=== PATIENT | male | born 1950 | race Caucasian/White ===

== ENCOUNTER 2016-11-22 01:31 | Emergency (ER) | payer BC ==
[2016-11-22] MEDS ORDERED: KETOROLAC 30 MG/ML VIAL (J1885) As Ordered ONE (01:50)
--- NOTE | 2016-11-22 02:40 | REPUSA ---
History: Left-sided pain. Comparison: Not provided. Technique: Spiral CT scan of the abdomen and pelvis was performed. No intravenous or enteric contrast was administered. Axial images were displayed, as were sagittal and coronal reconstructions. Exam DL P: Findings: The visualized lung bases are unremarkable. 1.3 cm well-defined hypodense lesion of the right hepatic lobe. Benign and chronic. Normal unenhanced liver. Normal gallbladder and extrahepatic biliary system. Normal unenhanced spleen . Normal pancreas. Normal bilateral adrenal glands. Normal size of the right kidney. There is no right renal mass. There are no right renal calculi. Ther e is no right hydronephrosis. Normal visualized right ureter. Normal size of the left kidney. There is no left renal mass. There are no left renal calculi. There i s no left hydronephrosis. Normal visualized left ureter. Normal visualized stomach. Normal small intestine. Fecal stasis in the colon. The appendix is visuali zed and appears normal. There is no demonstrated peritoneal fluid. Normal abdominal aorta. Normal inferior vena cava. Normal retroperitoneum. Mildly thickened urinary bladder. There is no pelvic mass lesion or lymphadenopathy. There is no pelv ic fluid. Normal abdominal wall. Normal osseous structures. Impression: Fecal stasis in the colon.
--- NOTE | 2016-11-22 02:56 | EDDOCDS ---
Nurse's Notes [facility] Name: Redd Briones Age: 66 yrs Sex: Male : 1950 Arrival Date: 11/22/2016 Time: 01:31 Bed I5 / M5 Private MD: Diagnosis: Low back pain-mechanical Presentation: 11/22 01:34 Presenting complaint: Patient states: per pt mid back pain since Saturday night, pt tm5 unsure of injury to his back, awakened tonight due to back pain, denies any other complaints. Acute neurological deficits are not present. Mechanism of Injury: No Mechanism of Injury. Adult Sepsis Screening: The patient does not have new or worsening altered mentation. Patient's respiratory rate is less than 22. Systolic blood pressure is greater than 100. Patient has a qSOFA score of 0- Negative Sepsis Screen. Suicide/Homicide risk assessment- the patient denies having any suicidal and/or homicidal ideations and does not present with any other emotional, behavioral or mental health complaints. 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 Transition of care: patient was not received from another setting of care. 01:34 Acuity: EARL Level 4 tm5 01:34 Method Of Arrival: Walkin/Carried/Asstd tm5 Triage Assessment: 01:38 General: Appears in no apparent distress, Behavior is appropriate for age, cooperative. tm5 Pain: Location: back Pain currently is 10 out of 10 on a pain scale. Quality of pain is described as sharp. Pt Declines HIV testing. Neurological: Level of Consciousness is awake, alert, Oriented to person, place, time. Respiratory: Airway is patent Respiratory effort is even, unlabored, Respiratory pattern is regular, symmetrical. Derm: Skin is pink, warm & dry. Musculoskeletal: Reports pain in back. Historical: - Allergies: Compazine; - Home Meds: 1. Metoprolol Tartrate Unknown Oral once daily 2. Digoxin Unknown Oral - PMHx: Atrial Fib; Hypertension; - PSHx: none; Cardiac stents; - Social history: Smoking status: Patient states was never smoker of tobacco. No barriers to communication noted, The patient speaks fluent Kiswahili. - Family history: Not pertinent. - : The pt / caregiver states he / she is not on anticoagulants. Home medication list is obtained from the patient. - Exposure Risk Screening:: None identified. Screenin:39 Screening information is obtained from the patient. Fall risk: No risks identified. tm5 Assistance ADL's: requires no assistance with activities of daily living. Abuse/DV Screen: The patient / caregiver reports he/she is: not in a situation that causes fear, pain or injury. Nutritional screening: No deficits noted. Advance Directives: Currently, there is no health care proxy. There is no active DNR order. home support is adequate. Assessment: 02:15 General: Appears in no apparent distress, Behavior is appropriate for age, cooperative. js15 Pain: Location: back. Neurological: Level of Consciousness is awake, alert, obeys commands, Oriented to person, place, time. Respiratory: Airway is patent Respiratory effort is even, unlabored, Respiratory pattern is regular, symmetrical. Derm: Skin is pink, warm & dry. 02:54 Reassessment: Patient appears in no apparent distress at this time. Patient denies pain js15 at this time. Patient states feeling better. Patient states symptoms have improved. Pt resting on stretcher, respirations even and unlabored; skin pink, warm, dry. Vital Signs: 01:38 BP 164 / 77; Pulse 80; Resp 18; Temp 98.3(O); Pulse Ox 98% on R/A; Weight 83.91 kg; tm5 Height 5 ft. 7 in. (170.18 cm); Pain 10/10; 02:35 BP 130 / 94; Pulse 67; Resp 18; Temp 97.5(TE); Pulse Ox 97% on R/A; Pain 4/10; js15 02:36 Pain 4/10; js15 01:38 Body Mass Index 28.97 (83.91 kg, 170.18 cm) 5 Vitals: 01:38 Log In Time: November 22, 2016 at 01:39. 5 ED Course: 01:32 Patient visited by Ernestina Velazquez. jp5 01:32 Patient moved to Waiting jp5 01:36 Triage Initiated tm5 01:37 Samson Luis PA-C is PHCP. cc10 01:37 Darlene Lacy MD is Attending Physician. cc10 01:38 Family accompanied patient. tm5 01:40 Patient visited by Samson Luis PA-C. cc10 01:40 Patient visited by Samson Luis PA-C. cc10 01:40 Patient moved to I5 / tm5 01:56 UA Sent. nn1 02:15 The patient / caregiver is instructed regarding the plan of care and ED course. js15 02:36 Patient visited by Jolly Ceja RN. js15 02:53 CT ABD & PELVIS: No Contrast Returned. EDMS 02:54 No IV's were initiated during this patient's visit. No procedures done that require js15 assistance. Administered Medications: 01:56 Drug: ketorolac 30 mg [ketorolac 30 mg/mL (1 mL) injection solution (1 mL)] Route: IM; nn1 Site: left deltoid; 02:35 Follow up: BP 130 / 94; Pulse 67 bpm; Resp 18 bpm; Temp 97.5 Temporal; Pulse Ox 97% RA; js15 Pain 4/10 Adult; Response: Pain is decreased 01:56 Drug: Diazepam 5 mg [diazepam 5 mg/mL injection syringe (1 mL)] Route: IM; Site: right nn1 deltoid; 02:36 Follow up: Pain 4/10 Adult; Response: Pain is decreased js15 Order Results: Lab Order: UA; SPEC'M 11/22/16 01:56 Test: APPEARANCE, URINE; Value: CLEAR; Range: CLEAR; Status: F Test: COLOR, URINE; Value: YELLOW; Range: YELLOW; Status: F Test: PH,URINE; Value: 5.0; Range: 5.0-9.0; Units: UNITS; Status: F Test: SPECIFIC GRAVITY URINE AUTO; Value: 1.023; Range: 1.002-1.035; Status: F Test: PROTEIN, URINE AUTO; Value: NEGATIVE; Range: NEGATIVE; Units: mg/dL; Status: F Test: GLUCOSE, URINE (UA) AUTO; Value: NEGATIVE; Range: NEGATIVE; Units: mg/dL; Status: F Test: KETONE, URINE AUTO; Value: NEGATIVE; Range: NEGATIVE; Units: mg/dL; Status: F Test: UROBILINOGEN, URINE AUTO; Value: 0.2; Range: 0.0-2.0; Units: mg/dL; Status: F Test: BILIRUBIN, URINE AUTO; Value: NEGATIVE; Range: NEGATIVE; Status: F Test: NITRITE, URINE AUTO; Value: NEGATIVE; Range: NEGATIVE; Status: F Test: LEUKOCYTE ESTERASE, URINE AUTO; Value: NEGATIVE; Range: NEGATIVE; Status: F Test: BLOOD, URINE BLOOD; Value: NEGATIVE; Range: NEGATIVE; Status: F Test: WBC, URINE AUTO; Value: 0; Range: 0-3; Units: /HPF; Status: F Test: RBC, URINE AUTO; Value: 0; Range: 0-3; Units: /HPF; Status: F Test: BACTERIA, URINE AUTO; Value: NEGATIVE; Range: NEGATIVE; Status: F Test: SQUAMOUS EPITHELIAL CELL UR AU; Value: 0; Range: 0-6; Units: /HPF; Status: F Test: MUCUS, URINE; Value: SMALL; Range: NEGATIVE; Status: F Test: HYALINE CAST, URINE AUTO; Value: 1; Range: 0-1; Units: /LPF; Status: F Radiology Order: CT ABD & PELVIS: No Contrast Test: CT ABD & PELVIS: No Contrast REASON FOR EXAMINATION: Renal colic; ; History: Left-sided pain.; Comparison: Not provided.; Technique: Spiral CT scan of the abdomen and pelvis was performed. No intravenous or enteric contrast; was administered. Axial images were displayed, as were sagittal and coronal reconstructions. Exam DL; P:; Findings:; The visualized lung bases are unremarkable.; 1.3 cm well-defined hypodense lesion of the right hepatic lobe. Benign and chronic.; Normal unenhanced liver. Normal gallbladder and extrahepatic biliary system. Normal unenhanced spleen; . Normal pancreas.; Normal bilateral adrenal glands.; Normal size of the right kidney. There is no right renal mass. There are no right renal calculi. Ther; e is no right hydronephrosis. Normal visualized right ureter.; Normal size of the left kidney. There is no left renal mass. There are no left renal calculi. There i; s no left hydronephrosis. Normal visualized left ureter.; Normal visualized stomach. Normal small intestine. Fecal stasis in the colon. The appendix is visuali; zed and appears normal.; There is no demonstrated peritoneal fluid.; Normal abdominal aorta. Normal inferior vena cava. Normal retroperitoneum.; Mildly thickened urinary bladder. There is no pelvic mass lesion or lymphadenopathy. There is no pelv; ic fluid.; Normal abdominal wall. Normal osseous structures.; Impression:; Fecal stasis in the colon.; ; Outcome: 02:47 Discharge ordered by Provider. cc10 02:54 Discharge Assessment: Patient awake, alert and oriented x 3. No cognitive and/or js15 functional deficits noted. Patient verbalized understanding of disposition instructions. patient administered narcotics - no. The following High Risk Discharge criteria are identified: None. Discharged to home ambulatory, with family. Condition: improved. Discharge instructions given to patient, Instructed on discharge instructions, follow up and referral plans. medication usage, no driving heavy equipment, Demonstrated understanding of instructions, medications, Pt was receptive of discharge instructions/ teaching. Prescriptions given X 2. CT Study completed. Property sent home with patient. 02:55 Patient left the ED. js15 Signatures: Dispatcher [employer] EDMS Samson Luis, AMANDEEP PARadha cc10 Jolly Ceja,RN RN js15 Dennys ArmendarizRN RN nn1 Ernestina Velazquez 5 Leila Marie,RN RN tm5 HENRIQUE
--- NOTE | 2016-11-22 02:56 | EDDOCDS ---
Physician Documentation [facility] Name: Redd Briones Age: 66 yrs Sex: Male : 1950 Arrival Date: 11/22/2016 Time: 01:31 Bed I5 / M5 Private MD: Disposition: 11/22/16 02:47 Discharged to Home/Self Care. Impression: Low back pain - mechanical. - Condition is Stable. - Discharge Instructions: Back Pain, Adult. - Prescriptions for Ultram 50 mg Oral Tablet - take 1 tablet by ORAL route every 6 hours As needed MDD: 4 tabs; 12 tablet. Robaxin- 750 750 mg Oral Tablet - take 1 tablet by ORAL route every 6 hours As needed; 40 tablet. - Medication Reconciliation form. - Follow up: Private Physician; When: Call to arrange an appointment; Reason: Wound/Symptom Recheck, Recheck today's complaints, Worsening of conditions, Continuance of care. - Problem is an ongoing problem. - Symptoms have improved. Historical: - Allergies: Compazine; - Home Meds: 1. Metoprolol Tartrate Unknown Oral once daily 2. Digoxin Unknown Oral - PMHx: Atrial Fib; Hypertension; - PSHx: none; Cardiac stents; - Social history: Smoking status: Patient states was never smoker of tobacco. No barriers to communication noted, The patient speaks fluent Marshallese. - Family history: Not pertinent. - : The pt / caregiver states he / she is not on anticoagulants. Home medication list is obtained from the patient. - Exposure Risk Screening:: None identified. Vital Signs: 11/22 01:38 BP 164 / 77; Pulse 80; Resp 18; Temp 98.3(O); Pulse Ox 98% on R/A; Weight 83.91 kg / tm5 184.99 lbs; Height 5 ft. 7 in. (170.18 cm); Pain 10/10; 02:35 BP 130 / 94; Pulse 67; Resp 18; Temp 97.5(TE); Pulse Ox 97% on R/A; Pain 4/10; js15 02:36 Pain 4/10; js15 01:38 Body Mass Index 28.97 (83.91 kg, 170.18 cm) tm5 MDM: 01:44 ketorolac 30 mg IM once ordered. cc10 01:44 Diazepam 5 mg IM once ordered. cc10 01:45 UA Ordered. EDMS 01:45 CT ABD & PELVIS: No Contrast Ordered. EDMS 02:14 UA Reviewed. cc10 02:47 Financial registration complete. hs2 Administered Medications: 01:56 Drug: ketorolac 30 mg [ketorolac 30 mg/mL (1 mL) injection solution (1 mL)] Route: IM; nn1 Site: left deltoid; 02:35 Follow up: BP 130 / 94; Pulse 67 bpm; Resp 18 bpm; Temp 97.5 Temporal; Pulse Ox 97% RA; js15 Pain 4/10 Adult; Response: Pain is decreased 01:56 Drug: Diazepam 5 mg [diazepam 5 mg/mL injection syringe (1 mL)] Route: IM; Site: right nn1 deltoid; 02:36 Follow up: Pain 4/10 Adult; Response: Pain is decreased js15 Signatures: Dispatcher [employer] EDMS Samson Luis PA-C PA-C cc10 Jolly Ceja RN RN js15 Cici Salgado, Reg Reg hs2 Leila MarieRN RN tm5 Dennys Armendariz RN nn1 MTDD
--- NOTE | 2016-11-24 03:56 | EDDOCDS ---
Nurse's Notes [facility] Name: Redd Briones Age: 66 yrs Sex: Male : 1950 Arrival Date: 11/22/2016 Time: 01:31 Bed I5 / M5 Private MD: Diagnosis: Low back pain-mechanical Presentation: 11/22 01:34 Presenting complaint: Patient states: per pt mid back pain since Saturday night, pt tm5 unsure of injury to his back, awakened tonight due to back pain, denies any other complaints. Acute neurological deficits are not present. Mechanism of Injury: No Mechanism of Injury. Adult Sepsis Screening: The patient does not have new or worsening altered mentation. Patient's respiratory rate is less than 22. Systolic blood pressure is greater than 100. Patient has a qSOFA score of 0- Negative Sepsis Screen. Suicide/Homicide risk assessment- the patient denies having any suicidal and/or homicidal ideations and does not present with any other emotional, behavioral or mental health complaints. Status: Patient is not a auto service writer or dependent. Transition of care: patient was not received from another setting of care. 01:34 Acuity: EARL Level 4 tm5 01:34 Method Of Arrival: Walkin/Carried/Asstd tm5 Triage Assessment: 01:38 General: Appears in no apparent distress, Behavior is appropriate for age, cooperative. tm5 Pain: Location: back Pain currently is 10 out of 10 on a pain scale. Quality of pain is described as sharp. Pt Declines HIV testing. Neurological: Level of Consciousness is awake, alert, Oriented to person, place, time. Respiratory: Airway is patent Respiratory effort is even, unlabored, Respiratory pattern is regular, symmetrical. Derm: Skin is pink, warm & dry. Musculoskeletal: Reports pain in back. Historical: - Allergies: Compazine; - Home Meds: 1. Metoprolol Tartrate Unknown Oral once daily 2. Digoxin Unknown Oral - PMHx: Atrial Fib; Hypertension; - PSHx: none; Cardiac stents; - Social history: Smoking status: Patient states was never smoker of tobacco. No barriers to communication noted, The patient speaks fluent Romansh. - Family history: Not pertinent. - : The pt / caregiver states he / she is not on anticoagulants. Home medication list is obtained from the patient. - Exposure Risk Screening:: None identified. Screenin:39 Screening information is obtained from the patient. Fall risk: No risks identified. tm5 Assistance ADL's: requires no assistance with activities of daily living. Abuse/DV Screen: The patient / caregiver reports he/she is: not in a situation that causes fear, pain or injury. Nutritional screening: No deficits noted. Advance Directives: Currently, there is no health care proxy. There is no active DNR order. home support is adequate. Assessment: 02:15 General: Appears in no apparent distress, Behavior is appropriate for age, cooperative. js15 Pain: Location: back. Neurological: Level of Consciousness is awake, alert, obeys commands, Oriented to person, place, time. Respiratory: Airway is patent Respiratory effort is even, unlabored, Respiratory pattern is regular, symmetrical. Derm: Skin is pink, warm & dry. 02:54 Reassessment: Patient appears in no apparent distress at this time. Patient denies pain js15 at this time. Patient states feeling better. Patient states symptoms have improved. Pt resting on stretcher, respirations even and unlabored; skin pink, warm, dry. Vital Signs: 01:38 BP 164 / 77; Pulse 80; Resp 18; Temp 98.3(O); Pulse Ox 98% on R/A; Weight 83.91 kg; tm5 Height 5 ft. 7 in. (170.18 cm); Pain 10/10; 02:35 BP 130 / 94; Pulse 67; Resp 18; Temp 97.5(TE); Pulse Ox 97% on R/A; Pain 4/10; js15 02:36 Pain 4/10; js15 01:38 Body Mass Index 28.97 (83.91 kg, 170.18 cm) 5 Vitals: 01:38 Log In Time: November 22, 2016 at 01:39. 5 ED Course: 01:32 Patient visited by Ernestina Velazquez. jp5 01:32 Patient moved to Waiting jp5 01:36 Triage Initiated tm5 01:37 Samson Luis PA-C is PHCP. cc10 01:37 Darlene Lacy MD is Attending Physician. cc10 01:38 Family accompanied patient. tm5 01:40 Patient visited by Samson Luis PA-C. cc10 01:40 Patient visited by Samson Luis PA-C. cc10 01:40 Patient moved to I5 / tm5 01:56 UA Sent. nn1 02:15 The patient / caregiver is instructed regarding the plan of care and ED course. js15 02:36 Patient visited by Jolly Ceja RN. js15 02:53 CT ABD & PELVIS: No Contrast Returned. EDMS 02:54 No IV's were initiated during this patient's visit. No procedures done that require js15 assistance. 02:57 Patient name changed from Redd\S\Arturo\S\Sheitz\S\ to Redd\S\Naveen\S\Sheitz. EDMS 02:58 DE-EM Payment Agreement was scanned into [employer] and attached to record. hs2 21:53 T-Sheet-- Draft Copy was scanned into [employer] and attached to record. klr Administered Medications: 01:56 Drug: ketorolac 30 mg [ketorolac 30 mg/mL (1 mL) injection solution (1 mL)] Route: IM; nn1 Site: left deltoid; 02:35 Follow up: BP 130 / 94; Pulse 67 bpm; Resp 18 bpm; Temp 97.5 Temporal; Pulse Ox 97% RA; js15 Pain 4/10 Adult; Response: Pain is decreased 01:56 Drug: Diazepam 5 mg [diazepam 5 mg/mL injection syringe (1 mL)] Route: IM; Site: right nn1 deltoid; 02:36 Follow up: Pain 4/10 Adult; Response: Pain is decreased js15 Order Results: Lab Order: UA; SPEC'M 11/22/16 01:56 Test: APPEARANCE, URINE; Value: CLEAR; Range: CLEAR; Status: F Test: COLOR, URINE; Value: YELLOW; Range: YELLOW; Status: F Test: PH,URINE; Value: 5.0; Range: 5.0-9.0; Units: UNITS; Status: F Test: SPECIFIC GRAVITY URINE AUTO; Value: 1.023; Range: 1.002-1.035; Status: F Test: PROTEIN, URINE AUTO; Value: NEGATIVE; Range: NEGATIVE; Units: mg/dL; Status: F Test: GLUCOSE, URINE (UA) AUTO; Value: NEGATIVE; Range: NEGATIVE; Units: mg/dL; Status: F Test: KETONE, URINE AUTO; Value: NEGATIVE; Range: NEGATIVE; Units: mg/dL; Status: F Test: UROBILINOGEN, URINE AUTO; Value: 0.2; Range: 0.0-2.0; Units: mg/dL; Status: F Test: BILIRUBIN, URINE AUTO; Value: NEGATIVE; Range: NEGATIVE; Status: F Test: NITRITE, URINE AUTO; Value: NEGATIVE; Range: NEGATIVE; Status: F Test: LEUKOCYTE ESTERASE, URINE AUTO; Value: NEGATIVE; Range: NEGATIVE; Status: F Test: BLOOD, URINE BLOOD; Value: NEGATIVE; Range: NEGATIVE; Status: F Test: WBC, URINE AUTO; Value: 0; Range: 0-3; Units: /HPF; Status: F Test: RBC, URINE AUTO; Value: 0; Range: 0-3; Units: /HPF; Status: F Test: BACTERIA, URINE AUTO; Value: NEGATIVE; Range: NEGATIVE; Status: F Test: SQUAMOUS EPITHELIAL CELL UR AU; Value: 0; Range: 0-6; Units: /HPF; Status: F Test: MUCUS, URINE; Value: SMALL; Range: NEGATIVE; Status: F Test: HYALINE CAST, URINE AUTO; Value: 1; Range: 0-1; Units: /LPF; Status: F Radiology Order: CT ABD & PELVIS: No Contrast Test: CT ABD & PELVIS: No Contrast REASON FOR EXAMINATION: Renal colic; ; History: Left-sided pain.; Comparison: Not provided.; Technique: Spiral CT scan of the abdomen and pelvis was performed. No intravenous or enteric contrast; was administered. Axial images were displayed, as were sagittal and coronal reconstructions. Exam DL; P:; Findings:; The visualized lung bases are unremarkable.; 1.3 cm well-defined hypodense lesion of the right hepatic lobe. Benign and chronic.; Normal unenhanced liver. Normal gallbladder and extrahepatic biliary system. Normal unenhanced spleen; . Normal pancreas.; Normal bilateral adrenal glands.; Normal size of the right kidney. There is no right renal mass. There are no right renal calculi. Ther; e is no right hydronephrosis. Normal visualized right ureter.; Normal size of the left kidney. There is no left renal mass. There are no left renal calculi. There i; s no left hydronephrosis. Normal visualized left ureter.; Normal visualized stomach. Normal small intestine. Fecal stasis in the colon. The appendix is visuali; zed and appears normal.; There is no demonstrated peritoneal fluid.; Normal abdominal aorta. Normal inferior vena cava. Normal retroperitoneum.; Mildly thickened urinary bladder. There is no pelvic mass lesion or lymphadenopathy. There is no pelv; ic fluid.; Normal abdominal wall. Normal osseous structures.; Impression:; Fecal stasis in the colon.; ; Outcome: 02:47 Discharge ordered by Provider. cc10 02:54 Discharge Assessment: Patient awake, alert and oriented x 3. No cognitive and/or js15 functional deficits noted. Patient verbalized understanding of disposition instructions. patient administered narcotics - no. The following High Risk Discharge criteria are identified: None. Discharged to home ambulatory, with family. Condition: improved. Discharge instructions given to patient, Instructed on discharge instructions, follow up and referral plans. medication usage, no driving heavy equipment, Demonstrated understanding of instructions, medications, Pt was receptive of discharge instructions/ teaching. Prescriptions given X 2. CT Study completed. Property sent home with patient. 02:55 Patient left the ED. js15 Signatures: Dispatcher [employer] EDMS Samson Luis, PA-C PA-C cc10 Jolly Ceja,RN RN js15 Dennys Armendariz,RN RN nn1 Ernestina Velazquez 5 Cici Salgado, Reg Reg hs2 Kyara Bolivar Tonya,RN RN tm5 Chart Complete MTDD
--- NOTE | 2016-11-24 03:56 | EDDOCDS ---
Physician Documentation [facility] Name: Redd Briones Age: 66 yrs Sex: Male : 1950 Arrival Date: 11/22/2016 Time: 01:31 Bed I5 / M5 Private MD: Disposition: 11/22/16 02:47 Discharged to Home/Self Care. Impression: Low back pain - mechanical. - Condition is Stable. - Discharge Instructions: Back Pain, Adult. - Prescriptions for Ultram 50 mg Oral Tablet - take 1 tablet by ORAL route every 6 hours As needed MDD: 4 tabs; 12 tablet. Robaxin- 750 750 mg Oral Tablet - take 1 tablet by ORAL route every 6 hours As needed; 40 tablet. - Medication Reconciliation form. - Follow up: Private Physician; When: Call to arrange an appointment; Reason: Wound/Symptom Recheck, Recheck today's complaints, Worsening of conditions, Continuance of care. - Problem is an ongoing problem. - Symptoms have improved. Historical: - Allergies: Compazine; - Home Meds: 1. Metoprolol Tartrate Unknown Oral once daily 2. Digoxin Unknown Oral - PMHx: Atrial Fib; Hypertension; - PSHx: none; Cardiac stents; - Social history: Smoking status: Patient states was never smoker of tobacco. No barriers to communication noted, The patient speaks fluent [place]. - Family history: Not pertinent. - : The pt / caregiver states he / she is not on anticoagulants. Home medication list is obtained from the patient. - Exposure Risk Screening:: None identified. Vital Signs: 11/22 01:38 BP 164 / 77; Pulse 80; Resp 18; Temp 98.3(O); Pulse Ox 98% on R/A; Weight 83.91 kg / tm5 184.99 lbs; Height 5 ft. 7 in. (170.18 cm); Pain 10/10; 02:35 BP 130 / 94; Pulse 67; Resp 18; Temp 97.5(TE); Pulse Ox 97% on R/A; Pain 4/10; js15 02:36 Pain 4/10; js15 01:38 Body Mass Index 28.97 (83.91 kg, 170.18 cm) tm5 MDM: 01:44 ketorolac 30 mg IM once ordered. cc10 01:44 Diazepam 5 mg IM once ordered. cc10 01:45 UA Ordered. EDMS 01:45 CT ABD & PELVIS: No Contrast Ordered. EDMS 02:14 UA Reviewed. cc10 02:47 Financial registration complete. hs2 02:58 [facility] Payment Agreement was scanned into [employer] and attached to record. hs2 21:53 T-Sheet-- Draft Copy was scanned into [employer] and attached to record. klr Administered Medications: 01:56 Drug: ketorolac 30 mg [ketorolac 30 mg/mL (1 mL) injection solution (1 mL)] Route: IM; nn1 Site: left deltoid; 02:35 Follow up: BP 130 / 94; Pulse 67 bpm; Resp 18 bpm; Temp 97.5 Temporal; Pulse Ox 97% RA; js15 Pain 4/10 Adult; Response: Pain is decreased 01:56 Drug: Diazepam 5 mg [diazepam 5 mg/mL injection syringe (1 mL)] Route: IM; Site: right nn1 deltoid; 02:36 Follow up: Pain 4/10 Adult; Response: Pain is decreased js15 Signatures: Dispatcher [employer] EDMS Samson Luis, PA-C PA-C cc10 Jolly Ceja,RN RN js15 Cici Salgado, Reg Reg hs2 Kyara Bolivar klr Leila Marie,RN RN tm5 Dennys Armendariz RN nn1 The chart was reviewed and I authenticate all verbal orders and agree with the evaluation and treatment provided.Attachments: 02:58 [facility] Payment Agreement hs2 21:53 T-Sheet-- Draft Copy klr Chart Complete MTDD
--- NOTE | 2016-11-24 03:56 | EDDOCDS ---
Physician Documentation [facility] Name: Redd Briones Age: 66 yrs Sex: Male : 1950 Arrival Date: 11/22/2016 Time: 01:31 Bed I5 / M5 Private MD: Disposition: 11/22/16 02:47 Discharged to Home/Self Care. Impression: Low back pain - mechanical. - Condition is Stable. - Discharge Instructions: Back Pain, Adult. - Prescriptions for Ultram 50 mg Oral Tablet - take 1 tablet by ORAL route every 6 hours As needed MDD: 4 tabs; 12 tablet. Robaxin- 750 750 mg Oral Tablet - take 1 tablet by ORAL route every 6 hours As needed; 40 tablet. - Medication Reconciliation form. - Follow up: Private Physician; When: Call to arrange an appointment; Reason: Wound/Symptom Recheck, Recheck today's complaints, Worsening of conditions, Continuance of care. - Problem is an ongoing problem. - Symptoms have improved. Historical: - Allergies: Compazine; - Home Meds: 1. Metoprolol Tartrate Unknown Oral once daily 2. Digoxin Unknown Oral - PMHx: Atrial Fib; Hypertension; - PSHx: none; Cardiac stents; - Social history: Smoking status: Patient states was never smoker of tobacco. No barriers to communication noted, The patient speaks fluent [place]. - Family history: Not pertinent. - : The pt / caregiver states he / she is not on anticoagulants. Home medication list is obtained from the patient. - Exposure Risk Screening:: None identified. Vital Signs: 11/22 01:38 BP 164 / 77; Pulse 80; Resp 18; Temp 98.3(O); Pulse Ox 98% on R/A; Weight 83.91 kg / tm5 184.99 lbs; Height 5 ft. 7 in. (170.18 cm); Pain 10/10; 02:35 BP 130 / 94; Pulse 67; Resp 18; Temp 97.5(TE); Pulse Ox 97% on R/A; Pain 4/10; js15 02:36 Pain 4/10; js15 01:38 Body Mass Index 28.97 (83.91 kg, 170.18 cm) tm5 MDM: 01:44 ketorolac 30 mg IM once ordered. cc10 01:44 Diazepam 5 mg IM once ordered. cc10 01:45 UA Ordered. EDMS 01:45 CT ABD & PELVIS: No Contrast Ordered. EDMS 02:14 UA Reviewed. cc10 02:47 Financial registration complete. hs2 02:58 [facility] Payment Agreement was scanned into [employer] and attached to record. hs2 21:53 T-Sheet-- Draft Copy was scanned into [employer] and attached to record. klr Administered Medications: 01:56 Drug: ketorolac 30 mg [ketorolac 30 mg/mL (1 mL) injection solution (1 mL)] Route: IM; nn1 Site: left deltoid; 02:35 Follow up: BP 130 / 94; Pulse 67 bpm; Resp 18 bpm; Temp 97.5 Temporal; Pulse Ox 97% RA; js15 Pain 4/10 Adult; Response: Pain is decreased 01:56 Drug: Diazepam 5 mg [diazepam 5 mg/mL injection syringe (1 mL)] Route: IM; Site: right nn1 deltoid; 02:36 Follow up: Pain 4/10 Adult; Response: Pain is decreased js15 Signatures: Dispatcher [employer] EDMS Samson Luis, PA-C PA-C cc10 Jolly Ceja,RN RN js15 Cici Salgado, Reg Reg hs2 Kyara Bolivar klr Leila Marie,RN RN tm5 Dennys Armendariz RN nn1 The chart was reviewed and I authenticate all verbal orders and agree with the evaluation and treatment provided.Attachments: 02:58 [facility] Payment Agreement hs2 21:53 T-Sheet-- Draft Copy klr Chart Complete MTDD
== END 2016-11-23 02:55 | disposition home or self-care (01) ==
LOC: M ED 01:31
DX: M54.5 Low back pain (principal); I48.91 Unspecified atrial fibrillation; I10 Essential (primary) hypertension; Z95.5 Presence of coronary angioplasty implant and graft; Z79.899 Other long term (current) drug therapy; Z88.8 Allergy status to other drugs, medicaments and biological substances
CPT/HCPCS: 74176; 81001; 96372; 99284; J1885; J3360

== ENCOUNTER 2017-08-18 02:01 | Emergency (ER) | payer BC ==
[~2017-08-18] VITALS: Ht 170.2 cm; Wt 84.1 kg
[2017-08-18] MEDS ORDERED: XARE20TA PO (02:18)
[2017-08-18] MEDS ORDERED: PRED20TA PO (02:18)
[2017-08-18] MEDS ORDERED: CYCL10TA PO (02:18)
[2017-08-18 04:50] VITALS: BP 130/91
[2017-08-18] MEDS ORDERED: OXYCODONE/APAP 5MG/325MG(BULK FOR ED) 1 TABLET PO ONE (05:00)
[2017-08-18] MEDS ORDERED: PERC5TAB12 PO (05:00)
[2017-08-18] MEDS ORDERED: ROBA500T PO (05:00)
[2017-08-18] MEDS ORDERED: MORPHINE 10 MG/ML 1ML VIAL IM ONE (05:00)
== END 2017-08-18 05:22 | disposition home or self-care (01) ==
LOC: M ED 02:01
DX: M54.31 Sciatica, right side (principal)

== ENCOUNTER → 2017-11-28 | Outpatient (CLI) | payer BC | LOC: M WUC 10:06 | DX: I51.7 Cardiomegaly (principal); R05 Cough | CPT/HCPCS: 71046 ==

== ENCOUNTER → 2018-01-02 | Outpatient (REF) | payer BC ==
[2018-01-02 18:47] LABS: DIGOXIN LEVEL 0.4 NG/ML (0.5-2.0)
== END ==
LOC: M LAB REF 17:12
DX: I48.1 Persistent atrial fibrillation (principal)
CPT/HCPCS: 80162

== ENCOUNTER → 2018-01-23 | Outpatient (REF) | payer BC ==
[2018-01-23 13:32] LABS: DIGOXIN LEVEL 0.9 NG/ML (0.5-2.0)
== END ==
LOC: M LAB REF 12:02
DX: I48.1 Persistent atrial fibrillation (principal)
CPT/HCPCS: 80162

== ENCOUNTER → 2018-03-19 | Outpatient (REF) | payer BC ==
[2018-03-19 14:17] LABS: DIGOXIN LEVEL 0.8 NG/ML (0.5-2.0)
== END ==
LOC: M LAB REF 12:46
DX: I48.0 Paroxysmal atrial fibrillation (principal); Z79.01 Long term (current) use of anticoagulants; I50.22 Chronic systolic (congestive) heart failure
CPT/HCPCS: 80162

== ENCOUNTER → 2018-06-23 | Outpatient (REF) | payer BC ==
[2018-06-23 18:56] LABS: DIGOXIN LEVEL 0.6 NG/ML (0.5-2.0)
== END ==
LOC: M LAB REF 17:57
DX: I48.0 Paroxysmal atrial fibrillation (principal)
CPT/HCPCS: 80162

== ENCOUNTER → 2019-07-13 | Outpatient (REF) | payer BC ==
[~2019-07-13] MED LIST: CYCL10TA PO; PERC5TAB12 PO; PRED20TA PO; ROBA500T PO; XARE20TA PO
== END ==
LOC: M LAB REF 12:37
PROVIDERS: ATTEND Internal Medicine
DX: I48.0 Paroxysmal atrial fibrillation (principal)

== ENCOUNTER → 2020-05-31 | Outpatient (REF) | payer BC ==
[~2020-05-31] MED LIST changes: +CYCL-707 PO; -CYCL10TA PO
== END ==
LOC: M LAB REF 11:23
PROVIDERS: ATTEND Internal Medicine
DX: I48.0 Paroxysmal atrial fibrillation (principal)

== ENCOUNTER → 2020-12-05 | Outpatient (REF) | payer BC | LOC: M LAB REF 13:12 | PROVIDERS: ATTEND Internal Medicine | DX: I48.0 Paroxysmal atrial fibrillation (principal) ==

== ENCOUNTER → 2021-06-27 | Outpatient (REF) | payer BC | LOC: M LAB REF 17:55 | PROVIDERS: ATTEND Internal Medicine | DX: I48.0 Paroxysmal atrial fibrillation (principal) ==

== ENCOUNTER → 2022-01-02 | Outpatient (REF) | payer BC | LOC: M LAB REF 11:15 | PROVIDERS: ATTEND Internal Medicine | DX: I48.0 Paroxysmal atrial fibrillation (principal) ==

== ENCOUNTER → 2023-03-12 | Outpatient (REF) | payer BC | LOC: M LAB REF 17:16 | PROVIDERS: ATTEND Internal Medicine | DX: I48.0 Paroxysmal atrial fibrillation (principal); Z79.899 Other long term (current) drug therapy ==

== ENCOUNTER → 2024-04-09 | Outpatient (REF) | payer BC | LOC: M LAB REF 13:04 | PROVIDERS: ATTEND Internal Medicine | DX: I48.0 Paroxysmal atrial fibrillation (principal) ==

== ENCOUNTER → 2025-05-10 | Outpatient (REF) | payer MEDICARE | LOC: M LAB REF 14:29 | PROVIDERS: ATTEND Internal Medicine | DX: I48.0 Paroxysmal atrial fibrillation (principal) ==